=== PATIENT | female | born 1945 | race Caucasian/White ===

== ENCOUNTER 2023-12-12 15:46 | Emergency (ER) | payer OTHER, MEDICARE ==
[~2023-12-12] VITALS: Ht 162.6 cm; Wt 83.9 kg
[2023-12-12] MEDS ORDERED: TraMADol HCl 50 MG Tab PO ONE (18:05)
[2023-12-12] MEDS ORDERED: Ketorolac Tromethamine 15mg Vial IM ONE (18:05)
[2023-12-12] MEDS ORDERED: TRAM50 PO (18:46)
== END 2023-12-12 18:52 | disposition home or self-care (01) ==
LOC: ER 15:46
DX: S42.212A Unspecified displaced fracture of surgical neck of left humerus, initial encounter for closed fracture (principal); F17.210 Nicotine dependence, cigarettes, uncomplicated; W01.0XXA Fall on same level from slipping, tripping and stumbling without subsequent striking against object, initial encounter
CPT/HCPCS: 29105; 73060; 96372-59; 96374; 99283-25; A9270; J1885

== ENCOUNTER 2025-06-20 23:45 | Emergency (ER) | payer MEDICARE, OTHER ==
[~2025-06-20] VITALS: Ht 165.1 cm; Wt 63.5 kg
[~2025-06-20 23:45] MED LIST: Etomidate 2MG / ML 10ML Vial IV ONE; Propofol 10mg/ml 20 ml Vial (Procedural) IV ONE; Rocuronium Bromide 10 MG/ML 5ML Injection IV ONE; TRAM50 PO
[2025-06-20] MEDS ORDERED: NS 1,000 ML IV SCH (23:55)
[2025-06-21 00:05] LABS: BASOPHILS ABSOLUTE AUTO 0.06 K/mm3 (0.00-0.23); BASOPHILS PERCENT AUTO 0 % (0-2); EOSINOPHILS ABSOLUTE AUTO 0.04 K/mm3 (0.00-0.68); EOSINOPHILS PERCENT AUTO 0 % (0-6); Hematocrit 47.1 % (33.0-51.0); Hemoglobin 15.9 g/dL (11.5-16.0); IMMATURE GRAN ABSOLUTE AUTO 0.13 K/mm3 (0.00-0.10); IMMATURE GRAN PERCENT AUTO 1 % (0-1); LYMPHOCYTES ABSOLUTE AUTO 2.25 K/mm3 (0.84-5.20); LYMPHOCYTES PERCENT AUTO 12 % (21-46); MONOCYTES ABSOLUTE AUTO 0.84 K/mm3 (0.16-1.47); MONOCYTES PERCENT AUTO 4 % (4-13); Mean Corpuscular HGB Conc 33.8 g/dL (31.5-36.5); Mean Corpuscular Volume 96 fL (80-100); NEUTROPHILS ABSOLUTE AUTO 16.08 K/mm3 (1.96-9.15); NEUTROPHILS PERCENT AUTO 83 % (41-73); NRBC ABSOLUTE 0.00 K/mm3 (0.00-0.02); NRBC Auto 0.0 /100 WBC (0.0-0.2); Platelet Count 273 K/mm3 (150-400); RDW Coefficient Variation 12.5 % (11.7-14.2); RDW Standard Deviation 44.0 fL (35.1-46.3)
[2025-06-21] MEDS ORDERED: LORazepam 2 MG/ML 1ML Injection ONE (00:10)
[2025-06-21] MEDS ORDERED: Etomidate 2MG / ML 10ML Vial IV ONE (00:20)
[2025-06-21] MEDS ORDERED: Rocuronium Bromide 10 MG/ML 5ML Injection IV ONE (00:20)
[2025-06-21 00:35] LABS: Alanine Aminotransfer (ALT/SGP 14 U/L (12-78); Albumin, Blood 4.2 g/dL (3.4-5.0); Albumin/Globulin Ratio 1.1 (0.8-1.8); Anion Gap 13 mmol/L (3-11); Aspartate Aminotrans (AST/SGOT 25 U/L (12-37); Bilirubin, Total 0.4 mg/dL (0.1-1.0); Blood Urea Nitrogen 15 mg/dL (8-24); CO2, Blood 22 mmol/L (21-32); Calcium, Blood 9.3 mg/dL (8.5-10.1); Chloride, Blood 109 mmol/L (98-108); Creatinine, Blood 0.82 mg/dL (0.40-1.00); Ethanol (Alcohol), Blood, Med <3 mg/dL; Globulin, Blood 3.8 g/dL (2.2-4.0); Glucose, Blood 228 mg/dL (70-99); Magnesium, Blood 1.9 mg/dL (1.6-2.4); Potassium, Blood 3.3 mmol/L (3.5-5.5); Sodium, Blood 141 mmol/L (136-145); Total Protein, Blood 8.0 g/dL (6.4-8.2)
[2025-06-21] MEDS ORDERED: NiCARdipine HCL 50 MG in NS 250 ML IV SCH (01:15)
[2025-06-21] MEDS ORDERED: Midazolam HCL 1 MG/ML 5MLVIAL ONE (01:47)
[2025-06-21] MEDS ORDERED: Midazolam HCL 1 MG/ML 5MLVIAL IV ONE (02:00)
== END 2025-06-21 02:14 | disposition home or self-care (01) ==
LOC: ER 23:45
PROVIDERS: Emergency Medicine
DX: S06.6XAA Traumatic subarachnoid hemorrhage with loss of consciousness status unknown, initial encounter (principal); F17.200 Nicotine dependence, unspecified, uncomplicated; W19.XXXA Unspecified fall, initial encounter
CPT/HCPCS: 31500; 51702; 70450; 71045; 80053; 80320; 82947; 83605; 83735; 85025; 93005; 93010; 94002; 96374; 96375; 99285-25; J1953; J2060; J2250; J2704; J3010; J7030; J7050